=== PATIENT | female | born 1995 | race Caucasian/White ===

== ENCOUNTER → 2025-03-30 | Outpatient (CLI) | payer OTHER, SELFPAY ==
--- NOTE | 2025-03-30 11:15 | XR_ITS ---
Examination: Screening digital mammography, bilateral Computer aided detection 3-D breast Tomosynthesis, bilateral Date and time of exam: March 30, 2025 1112 hours Indication: Screening Technique: Nonmagnified MLO, CC views of the breasts to been obtained, reconstructed from 3-D Tomosynthesis images. R2 computer aided detection program utilized for evaluation of suspicious masses and/or abnormal calcifications. 3-D Tomosynthesis images obtained. Findings: The breasts are heterogeneously dense, which may obscure small masses Benign calcifications. No suspicious masses Impression: BI-RADS category II: Benign Findings. Recommend 1 year follow-up mammogram.
== END | disposition home or self-care (01) ==
DX: Z12.31 Encounter for screening mammogram for malignant neoplasm of breast (principal); R92.333 Mammographic heterogeneous density, bilateral breasts; R92.1 Mammographic calcification found on diagnostic imaging of breast
CPT/HCPCS: 77063; 77067

== ENCOUNTER 2025-04-03 17:13 | Emergency (ER) | payer OTHER, SELFPAY ==
[2025-04-03 17:34] VITALS: BP 153/98; PULSE 67; RESP 17; TEMP 36.8; O2SAT 98; BMI 46.3
--- NOTE | 2025-04-03 17:47 | XR_ITS ---
Examination: Wrist, right 3 views Technique: Wrist AP, oblique, lateral 3 views Date and time of exam: April 03, 2025, 1749 hours. INDICATION: Injury to the wrist 5 days ago, wrist pain. FINDINGS: No acute fracture. No dislocation. No foreign body IMPRESSION: No acute fracture.
--- NOTE | 2025-04-03 17:47 | XR_ITS ---
Examination: Hand, right 3 views Technique: Hand AP, oblique, lateral 3 views Date and time of exam: April 03, 2025 1749 hours INDICATIONS: Right hand pain beginning 5 days ago post injury FINDINGS: No acute fracture. No dislocation. No foreign body IMPRESSION: No acute fracture
--- NOTE | 2025-04-03 17:48 | PD.EDRME ---
Rapid Medical Screening Exam RME Arrival date/time: 04/03/25 17:13 30-year-old female with no known medical history presents to the emergency room with a chief complaint of right wrist and hand pain x 5 days I have greeted and performed a focused initial assessment of this patient. A comprehensive ED assessment and evaluation of the patient, analysis of all test results, and completion of the medical decision making process will be conducted by additional ED providers. Chief Complaint: Extremity Injury, Upper Vital signs: Vital Signs Temperature 98.2 F 04/03/25 17:34 Pulse Rate 67 04/03/25 17:34 Respiratory Rate 17 04/03/25 17:34 Blood Pressure 153/98 H 04/03/25 17:34 Pulse Oximetry (%) 98 04/03/25 17:34 Oxygen Delivery Method Room Air 04/03/25 17:34 Vital signs reviewed by provider: Yes
--- NOTE | 2025-04-03 20:55 | EDNOTE_ITS ---
Upper Extremity Injury RME/HPI General Chief Complaint: Extremity Injury, Upper Stated Complaint: R WRIST PAIN Time Seen by Provider: 04/03/25 18:17 Arrival date/time: 04/03/25 17:13 RME / HPI RME / HPI narrative: 30-year-old female with no known medical history presents to the emergency room with a chief complaint of right wrist and hand pain x 5 days. Patient denies any trauma to the wrist. Denies any redness denies any other complaints no medications taken prior to arrival. Patient was seen by PCP, and was referred to asked to do some x-ray to rule out fracture or dislocation. Related Data Home Medications ?Medication ?Instructions ?Recorded ?Confirmed escitalopram oxalate 10 mg tablet 10 mg PO QDAY 01/10/22 Previous Rx's ?Medication ?Instructions ?Recorded loperamide 2 mg capsule (Imodium 2 mg PO Q4H PRN loose stool #30 01/10/22 A-D) caps prochlorperazine 25 mg rectal 25 mg UT Q12H PRN nausea and 01/10/22 suppository (Compazine) vomiting #12 ea ibuprofen 800 mg tablet 800 mg PO TID PRN pain #30 t abs 04/03/25 Allergies Allergy/AdvReac Type Severity Reaction Status Date / Time clindamycin Allergy Intermediate Swelling Verified 04/03/25 17:16 of Lip/Tongue/Throat cephalexin (From Keflex) Allergy Difficulty Verified 04/03/25 17:16 Swallowing ciprofloxacin (From Cipro) Allergy Difficulty Verified 04/03/25 17:16 Breathing adhesive AdvReac Intermediate MAKES SKIN Verified 04/03/25 17:16 COME OFF, ITCHES AND GETS RED Review of Systems Review of Systems Narrative Review of Systems: Review of system reviewed and within normal limits except mentioned in HPI ED Exam Narrative Physical exam: VITAL SIGNS: Reviewed. GENERAL APPEARANCE: Alert and interactive, follows commands, no acute distress, HEAD AND FACE: Non-traumatic. ENT: PERRL, pink conjunctivitis, eyelid no trauma, Mucous membrane moist. RECTAL: Deferred. GENITAL: Deferred. NEUROLOGICAL: Gross motor function intact sensory function intact, Appropriate for age. MUSCULOSKELETAL: low back nontender, full range of motion. EXTREMITIES: Right medial wrist on the ulnar side, tenderness, worse with supination and pronation of the forearm. Limitation range of motion. Distal neurovascular status intact SKIN: Color pink, dry, no rash, no lacerations, no abrasions, no contusions. LYMPHATICS: Deferred. Course Quality Measures none Orders Category Date Time Status XR hand comp RT min 3V Stat Exams 04/03/25 17:47 Completed XR wrist comp RT min 3V Stat Exams 04/03/25 17:47 Completed Vital Signs Vital signs: Vital Signs Temperature 98.2 F 04/03/25 17:34 Pulse Rate 67 04/03/25 17:34 Respiratory Rate 17 04/03/25 17:34 Blood Pressure 153/98 H 04/03/25 17:34 Pulse Oximetry (%) 98 04/03/25 17:34 Oxygen Delivery Method Room Air 04/03/25 17:34 Extremity Injury [facility] Narrative [facility] Narrative:: 30-year-old female with no known medical history presents to the emergency room with a chief complaint of right wrist and hand pain x 5 days. Patient denies any trauma to the wrist. Denies any redness denies any other complaints no medications taken prior to arrival. Patient was seen by PCP, and was referred to asked to do some x-ray to rule out fracture or dislocation. X-ray of the wrist came back unremarkable. X-ray of the hand came back unremarkable. Patient was advised to buy wrist splint with a metal support and use 22 hours a day for 3 weeks. Patient data External records reviewed:: None Clinical information provided by:: patient Social determinants that could affect healthcare access:: none Patient has the following chronic illnesses:: None How is presenting disease/condition affected by chronic disease/condition?: no chronic disease Evaluation data The following diagnostics were reviewed and interpreted by me:: radiology exam(s) Lab and/or radiology exams considered but not ordered:: None Interpretation Summary: See results in MDM Medications / Prescriptions Medications or Prescriptions considered but not ordered:: None Medication administrations:: None Consultations Consultation(s) initiated? (list below): No Diagnosis Upper Extremity Injury Differential Diagnosis: fracture of wrist, Colles' fracture and other Most likely diagnosis given after review of the tests above:: Flexor carpi ulnaris tendinitis Admission Indicated Admission indicated?: not indicated Admission Request Was there a request for admission?: No Disposition Plan Disposition Plan: Discharge Discharge Attestation Discharge Attestation: The patient was given an opportunity to ask questions and understood the discharge instructions. Discharge instructions specifically effects, indications for sooner follow up or return to the emergency department, and the expected course of current diagnosis. Patient condition: Stable Discharge Plan Plan Patient Disposition: HOME (Self Care) Discharge Disposition comment: Stable Prescriptions/Referrals Prescriptions/Med Rec: New ibuprofen 800 mg tablet 800 mg PO TID PRN (Reason: pain) Qty: 30 0RF No Action prochlorperazine [Compazine] 25 mg suppository 25 mg UT Q12H MDD 2 PRN (Reason: nausea and vomiting) Qty: 12 0RF loperamide [Imodium A-D] 2 mg capsule 2 mg PO Q4H PRN (Reason: loose stool) Qty: 30 0RF Rx Instructions: after each loose stool until symptoms controlled;do not exceed 16 mg total dose in 24 hrs escitalopram oxalate 10 mg Tablet 10 mg PO QDAY Referrals: No Primary/Family,Physician [Primary Care Provider] - In 1 week Problem List Clinical Impression: Flexor carpi ulnaris tendinitis Patient/Caregiver Discharge Instructions Education Materials: ED Tendonitis Additional Instructions: Thank you for the opportunity for serving you today. You are stable for discharged . You are advised to: Follow-up with your PCP in 1 to 2 days Return to ED for worsening of symptoms Increase oral fluids Take medication as prescribed Wear wrist splint for 22 hours a day for the next 3 weeks Print Language: Vietnamese Stand Alone Forms: Noa Award Info., Patient Portal Info Letter JUSTIN/ROGER Supervising Physician JUSTIN/ROGER Supervising Physician: MD Gisselle
== END 2025-04-03 21:00 | disposition home or self-care (01) ==
PROVIDERS: Emergency Provider Emergency Medicine
DX: M77.8 Other enthesopathies, not elsewhere classified (principal)
CPT/HCPCS: 73110; 73130; 99283